=== PATIENT | female | born 1985 | race Caucasian/White ===

== ENCOUNTER 2017-01-22 01:15 | Outpatient (CLI) | payer MEDICAID ==
[~2017-01-22] VITALS: Ht 154.9 cm; Wt 78.4 kg
[2017-01-22 01:34] VITALS: Ht 154.9 cm; Wt 78.4 kg
[2017-01-22 01:35] VITALS: BP 104/56; PULSE 80; RESP 18
[2017-01-22 02:52] LABS: ADD UMIC NO; UR ASCORBIC ACID NEGATIVE (NEGATIVE); UR BILIRUBIN (Dip) NEGATIVE (NEGATIVE); UR BLOOD (Dip) NEGATIVE (NEGATIVE); UR CLARITY SLIGHTLY CLOUDY (CLEAR); UR COLOR YELLOW (YELLOW); UR GLUCOSE (Dip) NEGATIVE (NEGATIVE); UR KETONES (Dip) 1+ mg/dL (NEGATIVE); UR LEUKOCYTE ESTERASE (Dip) NEGATIVE Leu/ul (NEGATIVE); UR MUCUS MODERATE /HPF (NONE SEEN); UR NITRITE (Dip) NEGATIVE (NEGATIVE); UR RBC 0 /HPF (0-5); UR SPECIFIC GRAVITY (Dip) 1.021 (1.003-1.030); UR SQUAMOUS EPITHELIAL CELL FEW /HPF (FEW); UR TOTAL PROTEIN (Dip) NEGATIVE (NEGATIVE); UR UROBILINOGEN (Dip) 1+ mg/dL (NEGATIVE)
--- NOTE | 2017-01-22 02:59 | RADRPT ---
PROCEDURE: Obstetrical ultrasound, limited. CLINICAL INDICATION: Pelvic pain. TECHNIQUE: Multiple sonographic images of the pelvis were obtained using transabdominal technique . Images were obtained with ching scale and color Doppler. The images were reviewed on a PACS works tation. COMPARISON: No prior studies are available for comparison. FINDINGS: There is a single living intrauterine gestation with the fetus in a breech and variable presentation . heart tones of 144 beats per minute are identified. The placenta is posterior in location, grade 0-1. There is normal amniotic fluid volume with the maximum vertical pocket measuring 8.5 cm . There is no evidence of placenta abruption. IMPRESSION: Single viable intrauterine gestation. No evidence of placental abruption. .Danial Worthington MD, Date Time Electronically viewed and signed by .Danial Worthington MD, MD on 01/22/2017 02:59 .T/
--- NOTE | 2017-01-22 03:12 | PN ---
Triage Information Date/Time Jan 22, 2017 Reason for visit: Abd/pelvic pain Weeks of Gestation 25w 1d /Para 5/3/1 Diabetes: none Hypertention: none Additional information Pt was at a [employer] and was walking an tripped and fell on 2 small steps. She has 2 very sore and scraped knees and her right arm and shoulder are very sore. She says her belly hurt at first but doesn't hurt at all anymore. The edge of the stair touched the belly but did not hit the area hard. No bleeding or leaking. Pt feels movement. PMHx: none. PSHx: C/S x 3. NKDA. Objective Vital Signs Date Time Temp Pulse Resp B/P Pulse Ox O2 Delivery O2 Flow Rate FiO2 01/22/17 01:35 98.1 80 18 104/56 Room Air Heart Rate: 140's Contractions: None Exam Deferred. Results/Medications Results 24 hrs Laboratory Tests Test 01/22/17 01:15 Urine Color YELLOW Urine Clarity SLIGHTLY CLOUDY A Urine pH 5.0 Urine Specific [place]tt 1.021 Urine Ketones 1+ H Urine Nitrite NEGATIVE Urine Bilirubin NEGATIVE Urine Urobilinogen 1+ H Urine Leukocyte Esterase NEGATIVE Urine Microscopic RBC 0 Urine Microscopic WBC 1 Urine Squamous Epithelial Cells FEW Urine Calcium Oxalate Crystals MANY A Urine Mucus MODERATE Urine Hemoglobin NEGATIVE Urine Glucose NEGATIVE Urine Total Protein NEGATIVE Imaging Results BPP and placenta check on US pending. Disposition: Discharge Assessment/Plan A: IUP at 25w 1d. S/P fall. Abdominal pain. False labor. P: As long as the US and labwork is negative the pt will be d/c'ed home as this pt did not take a blow to the belly, rather the belly apparently touched the steps only. OSWALDO ROACH MD Jan 22, 2017 03:12
== END 2017-01-22 03:28 | disposition home or self-care (01) ==
LOC: OBT 01:15 → L-D 01:26 → OBT 03:28
PROVIDERS: ATTEND Obstetrics & Gynecology
DX: O26.892 Other specified pregnancy related conditions, second trimester (principal); Z3A.25 25 weeks gestation of pregnancy; Z91.81 History of falling
CPT/HCPCS: 76815; 81001; 81003; G0463

== ENCOUNTER → 2017-01-22 | Outpatient (CLI) | payer MEDICAID ==
[~2017-01-22] MED LIST: DENIES; FER325 PO; PNV1TABL4 PO
--- NOTE | 2017-01-22 05:30 | TRIAGE ---
OB Triage Datetime Report Generated by CPN: 01/22/2017 05:30 Datetime: 01/22/2017 03:35 Stage of : OB Triage Labor Evaluation Frequency: OCCASS Monitor Mode: External Duration (sec)2399: 30-40 Quality: Mild Pattern: Normal: <= 5 Contractions in 10 Minutes Resting Tone Orick: Relaxed Heart Rate FHR Baseline Rate: 140 Monitor Mode: External US Variability: Moderate 6-25 bpm Accelerations: 15X15 Decelerations: None Category: Category I Pain Assessment Pain Scale: 5 Pain Presence: Constant Pain Type: Ache Pain Location: Back; Right Leg; Right Arm Pain Goal: 3 Pain Relief Measures: Comfort Measures Datetime: 01/22/2017 03:00 Stage of : OB Triage Labor Evaluation Frequency: OCCASS Monitor Mode: External Duration (sec)2399: 30-40 Quality: Mild Pattern: Normal: <= 5 Contractions in 10 Minutes Resting Tone Orick: Relaxed Heart Rate FHR Baseline Rate: 140 Monitor Mode: External US Variability: Moderate 6-25 bpm Accelerations: 10X10 Decelerations: None Category: Category I Pain Assessment Pain Scale: 8 Pain Presence: Constant Pain Type: Ache Pain Location: Back; Right Leg; Right Arm Pain Goal: 3 Pain Relief Measures: Comfort Measures Datetime: 01/22/2017 02:00 Stage of : OB Triage Temperature Route: Oral Labor Evaluation Frequency: IRRITABILITY Monitor Mode: External Duration (sec)2399: 30-40 Quality: Mild Pattern: Normal: <= 5 Contractions in 10 Minutes Heart Rate FHR Baseline Rate: 140 Monitor Mode: External US Variability: Moderate 6-25 bpm Accelerations: 10X10 Decelerations: None Category: Category I Pain Assessment Pain Scale: 8 Pain Presence: Constant Pain Type: Ache Pain Location: Back; Right Leg; Right Arm Pain Goal: 3 Pain Relief Measures: Comfort Measures Datetime: 01/22/2017 01:44 EGA: 25.1 Time Provider Notified: 01/22/2017 00:30 Datetime: 01/22/2017 01:41 Time of Arrival: 01/22/2017 01:07 Arrived By: Wheelchair Arrived From: Home Chief Complaint: PT. FELL ON HER RT. SIDE AROUND MIDNIGHT, ABD AND BACK PAIN, RT ARM PAIN Movement: Present Contractions: Irregular Rupture of Membranes: Denies Vaginal Bleeding: None Vaginal Discharge: Denies Recent Sexual Intercouse: Denies Abdominal Trauma: Fall Patient Complaints: None Additional Patient Complaints: WAS AT HER MOTHER'S [employer] Time Provider Notified: 01/22/2017 01:57 Provider Notified: MARLEY Initial Plan: EFM, ASSESSMENT, CALL MD FOR ORDERS, UA, U/S FOR BPP WITH PLACENTA Datetime: 01/22/2017 01:40 Assessment Type: Triage Maternal Assessment Level of Consciousness: Fully Conscious DTR's/Clonus: DTRs 2+; No Clonus Headache: Denies Blurred Vision: No Respiratory Effort: Unlabored; Regular Rhythm; Equal Expansion Nausea/Vomiting: Denies RUQ Epigastric Pain: Denies Lower Extremities Edema: None Upper Extremities Edema: None Facial Edema: None Fall Risk Assessment History of Falling: (0) No (Annotations: THIS VISIT FELL, BRUISED BOTH KNEES, RT KNEE WITH BAND AI D, STATED RT. ARM HURTS, NO BRUISING, ALSO NO BRUISE OR RADHA ON ABDOMEN) Secondary Diagnosis: (0) No Ambulatory Aid: (0) Bedrest/Nurse Assist IV Therapy: (0) No Gait: (0) Normal/Bedrest/Immobile Mental Status: (0) Oriented to Own Ability Fall Score: 0 Fall Risk Score Definition: No Risk: No action required
== END | disposition home or self-care (01) ==
LOC: OBT 05:08
PROVIDERS: ATTEND Obstetrics & Gynecology
DX: O26.892 Other specified pregnancy related conditions, second trimester (principal); Z3A.25 25 weeks gestation of pregnancy; M54.9 Dorsalgia, unspecified; R10.9 Unspecified abdominal pain

== ENCOUNTER 2017-04-17 15:16 | Inpatient (IN) | payer MEDICAID ==
[~2017-04-17] VITALS: Ht 154.9 cm; Wt 86.8 kg
[~2017-04-17 15:16] MED LIST changes: -DENIES
[2017-04-17 15:30] VITALS: BP 109/65; PULSE 74; Ht 154.9 cm; Wt 86.8 kg
--- NOTE | 2017-04-17 15:45 | RADRPT ---
PROCEDURE: US OB biophysical profile. CLINICAL INDICATION: Liver TECHNIQUE: Multiple sonographic images of the pelvis were obtained. The images were reviewed on a PACS workstation. COMPARISON: US PELVIS 01/22/2017 FINDINGS: There is a single live intrauterine , in cephalic presentation. A normal heart rate i s identified measuring 139 beats per minute. The amniotic fluid index is within normal limits measur ing 19.4 cm. The placenta is grade II located posteriorly Biophysical profile: movement 2/2 tone 2/2. breathing 2/2 BRITTANY 2/2 Total 12/06 IMPRESSION: 1. Biophysical profile score of 12/06. 2. Single live intrauterine in cephalic presentation with normal heart rate of 139 b pm. 3. Normal amniotic fluid index of 19.4 cm. RPTAT: AAPP Physician Sanjeev Date Time Electronically viewed and signed by Physician Sanjeev on 04/17/2017 15:45 DELMAR/
[2017-04-17] MEDS: LACTATED RINGER'S 1,000 ML IV SCH ×2 (17:20→21:33)
[2017-04-17] MEDS ORDERED: CARBOPROST 250 MCG INJ IM PRN (21:00)
[2017-04-17] MEDS ORDERED: OXYTOCIN 30 UNITS/LR 500 ML IV SCH (21:00)
[2017-04-17] MEDS ORDERED: METHYLERGONOVINE 0.2 MG INJ IM PRN (21:00)
[2017-04-17] MEDS ORDERED: OXYTOCIN 30 UNITS/LR 500 ML IV PRN (21:00)
[2017-04-17] MEDS ORDERED: CEFAZOLIN 2 GM/50 ML (PMX) 50 ML IV SCH (21:00)
[2017-04-17] MEDS ORDERED: MISOPROSTOL 200 MCG TAB PR PRN (21:00)
[2017-04-17 21:08] LABS: BASOPHILS % 0.3 % (0.0-2.0); EOSINOPHILS # 0.1 10^3/ul (0.0-0.5); EOSINOPHILS % 1.1 % (0.0-7.0); HEMATOCRIT 38.9 % (37.0-47.0); HEMOGLOBIN 13.2 g/dl (12.0-16.0); LYMPHOCYTES # 2.3 10^3/ul (0.8-2.9); LYMPHOCYTES % 28.6 % (15.0-51.0); MEAN CORPUSCULAR HEMOGLOBIN 32.8 pg (29.0-33.0); MEAN CORPUSCULAR HGB CONC 33.9 g/dl (32.0-37.0); MEAN CORPUSCULAR VOLUME 96.8 fl (82.0-101.0); MEAN PLATELET VOLUME 10.8 fl (7.4-10.4); MONOCYTE # 0.5 10^3/ul (0.3-0.9); MONOCYTES % 6.4 % (0.0-11.0); NEUTROPHILS % 63.1 % (39.0-77.0); PLATELET COUNT 271 10^3/UL (140-415); RED BLOOD COUNT 4.02 10^6/ul (4.20-5.40); RED CELL DISTRIBUTION WIDTH 14.2 % (11.5-14.5)
[2017-04-17 21:13] LABS: INR 0.87; PROTIME 11.9 Sec (11.9-14.9); PT RATIO 0.9
[2017-04-17 21:14] LABS: PARTIAL THROMBOPLASTIN TIME 29.3 Sec (25.0-35.0)
[2017-04-17] MEDS ORDERED: CITRIC ACID/SODIUM CITRATE 15 ML CUP ONE (21:25)
[2017-04-17] MEDS ORDERED: FAMOTIDINE 20 MG INJ ONE (21:26)
[2017-04-17] MEDS ORDERED: METOCLOPRAMIDE 10 MG INJ ONE (21:26)
--- NOTE | 2017-04-17 21:26 | HP ---
Date/Time of Note Date/Time of Note DATE: 04/17/17 TIME: 21:25 OB - History Hx of Present Chief Complaint: repeat c/s in labor : 5 Para: 3 Care: Good Care Ultrasounds: Normal mid trimester US Obstetrical Complications: None Medical Complications: None Past Family/Social History * Past Medical, Surgical, Family and Obstetric Histories reviewed from chart. OB Admission Exam Vital Signs Vital Signs Vital Signs Date Time Temp Pulse Resp B/P Pulse Ox O2 Delivery O2 Flow Rate FiO2 04/17/17 15:30 97.8 74 109/65 Physical Exam HEENT: WNL Heart: Rhythm Normal Lungs: Clear, Equal Abdomen: WNL Extremities: Normal Reflexes: Normal Cervical Dilatation: Fingertip Effacement: 25% Station: -3 Membranes: Intact Heart Rate: 120's Accelerations: Accelerations Present Decelerations: No Decelerations Varibility: Moderate Contractions on Admission: < 5 Minutes Apart Intensity: Moderate Last 72 hours Lab Results CBC & BMP 04/17/17 17:20 OB Assessment/Plan Reason for admission: section (in labor) Plan: Section DOUG BROWN MD Apr 17, 2017 21:26
[2017-04-17] MEDS ORDERED: CITRIC ACID/NA CITRATE 30 ML CUP ONE (21:33)
[2017-04-17] MEDS ORDERED: LACTATED RINGER'S 1,000 ML IV ONE (21:40)
[2017-04-17] MEDS ORDERED: morphine SULFATE/PF (10 MG/10 ML) INJ ONE (21:45)
[2017-04-17] MEDS ORDERED: FENTAnyl 50 MCG/ML VIAL ONE (21:45)
[2017-04-17] MEDS ORDERED: FAMOTIDINE 20 MG INJ IV ONE (22:00)
[2017-04-17] MEDS ORDERED: CITRIC ACID/SODIUM CITRATE 15 ML CUP PO ONE (22:00)
[2017-04-17] MEDS ORDERED: METOCLOPRAMIDE 10 MG INJ IV ONE (22:00)
--- NOTE | 2017-04-17 22:12 | TRIAGE ---
OB Triage Datetime Report Generated by CPN: 04/17/2017 22:11 Datetime: 04/17/2017 20:43 Time of Arrival: 04/17/2017 20:43 EGA: 37.2 Arrived By: Ambulatory Arrived From: TRIAGE Datetime: 04/17/2017 20:00 Labor Evaluation Frequency: IRREGULAR Duration (sec)2399: 40-120 Heart Rate FHR Baseline Rate: 135 Monitor Mode: External US FHR Baseline Changes: No Baseline Change Variability: Moderate 6-25 bpm Accelerations: 15X15 Decelerations: None Category: Category I Datetime: 04/17/2017 19:43 Vaginal Exam Dilatation (cms): 0.0 Effacement (%): 0 Station: -3 Exam By: Tee TADEO RN Vaginal Bleeding: None Cervix, Consistency: Firm Cervix, Position: Posterior Datetime: 04/17/2017 19:29 Assessment Type: Triage Maternal Assessment Level of Consciousness: Fully Conscious DTR's/Clonus: DTRs 2+; No Clonus Headache: Denies Blurred Vision: No Respiratory Effort: Unlabored; Regular Rhythm; Equal Expansion Breath Sounds, Left: Clear and Equal Breath Sounds, Right: Clear and Equal Nausea/Vomiting: Denies RUQ Epigastric Pain: Denies Lower Extremities Edema: None Degree: None Upper Extremities Edema: None Degree: None Facial Edema: None Fall Risk Assessment History of Falling: (0) No Secondary Diagnosis: (0) No Ambulatory Aid: (0) Bedrest/Nurse Assist IV Therapy: (0) No Gait: (0) Normal/Bedrest/Immobile Mental Status: (0) Oriented to Own Ability Fall Score: 0 Fall Risk Score Definition: No Risk: No action required Pain Assessment Pain Scale: 9 Pain Presence: Intermittent Pain Location: Abdomen; Back Datetime: 04/17/2017 17:41 Monitor Mode: External Resting Tone Potlatch: Relaxed Contraction Comments: DIFFICULT TO DETERMINE, TOCO ADJ Heart Rate FHR Baseline Rate: 135 Monitor Mode: External US Variability: Moderate 6-25 bpm Accelerations: 10X10 Decelerations: None Category: Category I Pain Assessment Pain Scale: 5 Pain Presence: Intermittent Pain Type: Cramping Pain Location: Abdomen Pain Goal: 3 Pain Relief Measures: Comfort Measures Datetime: 04/17/2017 16:39 Labor Evaluation Frequency: 6-7 Monitor Mode: External Duration (sec)2399: 60-70 Pattern: Normal: <= 5 Contractions in 10 Minutes Resting Tone Potlatch: Relaxed Heart Rate FHR Baseline Rate: 135 Monitor Mode: External US Variability: Moderate 6-25 bpm Accelerations: 10X10 Decelerations: None Category: Category I Pain Assessment Pain Scale: 3 Pain Presence: Intermittent Pain Type: Cramping Pain Location: Abdomen Pain Goal: 3 Pain Relief Measures: Comfort Measures Datetime: 04/17/2017 16:10 Stage of : OB Triage Datetime: 04/17/2017 16:06 Vaginal Exam Dilatation (cms): 0.0 Exam By: S MARELY Vaginal Bleeding: None Cervix, Consistency: Soft Cervix, Position: Posterior Presentation 'A': Cephalic Datetime: 04/17/2017 15:34 Stage of : OB Triage Assessment Type: Triage Maternal Assessment Level of Consciousness: Fully Conscious DTR's/Clonus: DTRs 2+; No Clonus Headache: Denies Blurred Vision: No Respiratory Effort: Unlabored; Regular Rhythm; Equal Expansion Breath Sounds, Left: Clear and Equal Breath Sounds, Right: Clear and Equal Nausea/Vomiting: Denies RUQ Epigastric Pain: Denies Facial Edema: None Temperature Route: Axillary Fall Risk Assessment History of Falling: (0) No Secondary Diagnosis: (0) No Ambulatory Aid: (0) Bedrest/Nurse Assist IV Therapy: (0) No Gait: (0) Normal/Bedrest/Immobile Mental Status: (0) Oriented to Own Ability Fall Score: 0 Fall Risk Score Definition: No Risk: No action required Labor Evaluation Frequency: 3-4 Monitor Mode: External Duration (sec)2399: 40-50 Quality: Mild Pattern: Normal: <= 5 Contractions in 10 Minutes Resting Tone Potlatch: Relaxed Heart Rate FHR Baseline Rate: 135 Monitor Mode: External US Variability: Moderate 6-25 bpm Accelerations: 10X10 Decelerations: None Category: Category I Pain Assessment Pain Scale: 3 Pain Presence: Intermittent Pain Type: Cramping; Contraction Pain Location: Abdomen Pain Goal: 3 Pain Relief Measures: Comfort Measures Datetime: 04/17/2017 15:33 Time of Arrival: 04/17/2017 15:07 EGA: 37.2 Arrived By: Ambulatory Arrived From: Dr. Brenner Chief Complaint: SENT FROM OFFICE TO R/O LABOR, STATES UC'S Q 15 MIN, DENIES BLEEDING OR LEAKING O F FLUID Movement: Present Contractions: Regular Contractions: 15 Rupture of Membranes: Denies Vaginal Bleeding: None Vaginal Discharge: Denies Recent Sexual Intercouse: Denies Abdominal Trauma: Not Applicable Patient Complaints: Contractions; Cramping Time Provider Notified: 04/17/2017 16:10 Provider Notified: KEVIN Initial Plan: MONITOR, BPP Datetime: 01/22/2017 01:44 EGA: 25.1 Datetime: 01/22/2017 01:40 Fall Score: 0 Fall Risk Score Definition: No Risk: No action required
[2017-04-17] MEDS ORDERED: ONDANSETRON 4 MG INJ ONE (22:13)
[2017-04-17] MEDS ORDERED: PHENYLephrine (100 MCG/ML) 5ML SYG ONE (22:20)
[2017-04-17] MEDS ORDERED: OXYTOCIN 30 UNITS/LR 500 ML IV ONE (22:25)
[2017-04-17] MEDS ORDERED: HYDROmorphONE (0.2 MG/ML) 10ML SYG IV PRN (22:30)
[2017-04-17] MEDS ORDERED: MEPERIDINE 25 MG INJ IV PRN (22:30)
[2017-04-17] MEDS ORDERED: FENTAnyl 50 MCG/ML VIAL IV PRN (22:30)
[2017-04-17] MEDS ORDERED: DIPHENHYDRAMINE 50 MG INJ IV PRN ×2 (22:30→23:00)
[2017-04-17] MEDS ORDERED: PROCHLORPERAZINE 10 MG INJ IV PRN (22:30)
[2017-04-17] MEDS ORDERED: KETOROLAC 30 MG INJ IV PRN (22:30)
[2017-04-17] MEDS ORDERED: ONDANSETRON 4 MG INJ IV PRN ×2 (22:30→23:00)
--- NOTE | 2017-04-17 22:36 | OPR ---
Operative Report Planned Procedure Procedure date Apr 17, 2017 Procedure(s) REPEAT C/S Performed by see signature line Manager Image DR PASTOR Pre-procedure diagnosis REPEAT C/S IN LABOR Anesthesia Type: spinal Post-Procedure Post-procedure diagnosis SAME Findings Live Baby [], Apgars [] and [], weight [], position [], [] presentation []cord. Estimated Blood Loss: 600 - 700 mls Specimen(s) none Grafts/Implant(s) none Complication(s) none Pt Condition post procedure: stable Procedure Description Under satisfactory SPINAL anesthesia, the patient was prepped and draped and placed in a supine position, tilted to the left. Pfannenstiel incision was made , carried through the subcutaneous tissue. Bleeders brought under control with electrocautery. Fascia incised to the length of the incision. Rectus muscles from the fascia, divided midline. Peritoneum exposed, entered through a transverse incision. Exploration of abdomen revealed gravid uterus. Bladder flap was developed. Transverse incision was made in the lower segment of the uterus. Amniotic sac ruptured. [CLEAR ] amniotic fluid noted. [] Nasal oropharyngeal suction was performed. The baby was handed to the team for immediate attention. The placenta was delivered manually intact. Uterine cavity was cleaned with wet sponge and drainage established. Uterus closed in 2 layers using [ONE MONOCRYL] in continuous fashion. Peritoneal cavity irrigated with warm saline. Sponge, needle and instrument count reported to be correct. Abdominal peritoneum closed with [] continuously. Rectus muscle approximated with []. Fascia closed with [ONE MONOCRYL], and skin closed with tamir. Estimated blood loss [600]mL. DOUG BROWN MD Apr 17, 2017 22:36
[2017-04-17] MEDS ORDERED: HYDROmorphONE 0.5 MG/0.5 ML SYG IV PRN ×2 (23:00)
[2017-04-17] MEDS ORDERED: NALOXONE (0.4 MG/ML) INJ IV PRN (23:00)
[2017-04-17] MEDS ORDERED: ZOLPIDEM 5 MG TAB PO PRN (23:00)
[2017-04-18] VITALS (7 sets, daily range): BP systolic 98–117; BP diastolic 52–61; PULSE 71–88; RESP 16–20
[2017-04-18] MEDS ORDERED: OXYTOCIN 30 UNITS/LR 500 ML IV SCH (01:26)
[2017-04-18] MEDS: LACTATED RINGER'S 1,000 ML IV SCH ×3 (01:26→18:32)
[2017-04-18] MEDS ORDERED: NACL 0.9% 3 ML SYG IV SCH (01:30)
[2017-04-18] MEDS ORDERED: MISOPROSTOL 200 MCG TAB PR PRN (01:30)
[2017-04-18] MEDS ORDERED: LANOLIN 7 GM TUBE TOP PRN (01:30)
[2017-04-18] MEDS ORDERED: CARBOPROST 250 MCG INJ IM PRN (01:30)
[2017-04-18] MEDS ORDERED: OXYTOCIN 30 UNITS/LR 500 ML IV PRN (01:30)
[2017-04-18] MEDS ORDERED: METHYLERGONOVINE 0.2 MG INJ IM PRN (01:30)
[2017-04-18] MEDS: KETOROLAC 30 MG INJ IV PRN ×2 (03:02→12:30)
--- NOTE | 2017-04-18 12:27 | QN ---
Documentation Comment DOING WELL VSS ABD SOFT OOB TODAY DOUG BROWN MD Apr 18, 2017 12:27
[2017-04-18] MEDS: IBUPROFEN 800 MG TAB PO SCH (23:06)
[2017-04-19] MEDS: LACTATED RINGER'S 1,000 ML IV SCH (01:26)
[2017-04-19 04:00] VITALS: BP_SYST 111; BP_SYST 124; BP_DIAS 57; BP_DIAS 67; PULSE 74; PULSE 78; RESP 18; RESP 20
[2017-04-19] MEDS: IBUPROFEN 800 MG TAB PO SCH ×3 (05:05→22:56)
[2017-04-19 08:35] VITALS: BP 106/60; PULSE 72; RESP 17
[2017-04-19] MEDS: HYDROCODONE/APAP (5/325) TAB PO PRN ×2 (08:56→13:12)
[2017-04-19] MEDS ORDERED: INFLUENZA VIRUS VACCINE 0.5 ML (DISPENSING) IM* ONE (09:00)
[2017-04-19 10:38] LABS: BASOPHILS % 0.4 % (0.0-2.0); EOSINOPHILS # 0.1 10^3/ul (0.0-0.5); EOSINOPHILS % 0.8 % (0.0-7.0); HEMATOCRIT 35.4 % (37.0-47.0); HEMOGLOBIN 12.1 g/dl (12.0-16.0); LYMPHOCYTES # 1.6 10^3/ul (0.8-2.9); LYMPHOCYTES % 16.9 % (15.0-51.0); MEAN CORPUSCULAR HEMOGLOBIN 32.8 pg (29.0-33.0); MEAN CORPUSCULAR HGB CONC 34.2 g/dl (32.0-37.0); MEAN CORPUSCULAR VOLUME 95.9 fl (82.0-101.0); MONOCYTE # 0.5 10^3/ul (0.3-0.9); MONOCYTES % 5.2 % (0.0-11.0); NEUTROPHIL # 7.4 10^3/ul (1.6-7.5); NEUTROPHILS % 76.3 % (39.0-77.0); PLATELET COUNT 273 10^3/UL (140-415); RED BLOOD COUNT 3.69 10^6/ul (4.20-5.40); RED CELL DISTRIBUTION WIDTH 14.6 % (11.5-14.5); WHITE BLOOD COUNT 9.7 10^3/ul (4.8-10.8)
--- NOTE | 2017-04-19 11:58 | PN ---
Date/Time of Note Date/Time of Note DATE: 04/19/17 TIME: 11:55 OB Subjective Subjective Subjective Reports and complains of cough. Had mild headache. Denies any blurred vision or epigastric pain or right upper quadrant pain. Ambulating. Tolerated regular diet. Pain well controlled with p.o. pain medication. Breast-feeding. Had no nausea and vomiting. OB Objective Objective Objective General appearance: Alert and oriented 4. Does not appear to be in any acute distress. CV: RRR Lungs: Clear to auscultation bilaterally Abdomen: Soft, appropriate tenderness in the incision. Incision: Clean dry and intact. No evidence of drainage, erythema or cellulitis Extremities: No calf tenderness, no click no edema no cords palpable, Breasts: No evidence of mastitis or engorgement no fissure Hematology - 72 Hrs Test 04/17/17 17:20 04/19/17 10:12 White Blood Count 8.010^3/ul (4.8-10.8) 9.710^3/ul (4.8-10.8) # Red Blood Count 4.0210^6/ul (4.20-5.40) L 3.6910^6/ul (4.20-5.40) L Hemoglobin 13.2g/dl (12.0-16.0) 12.1g/dl (12.0-16.0) Hematocrit 38.9% (37.0-47.0) 35.4% (37.0-47.0) L Mean Corpuscular Volume 96.8fl (82.0-101.0) 95.9fl (82.0-101.0) Mean Corpuscular Hemoglobin 32.8pg (29.0-33.0) 32.8pg (29.0-33.0) Mean Corpuscular Hemoglobin Concent 33.9g/dl (32.0-37.0) 34.2g/dl (32.0-37.0) Red Cell Distribution Width 14.2% (11.5-14.5) 14.6% (11.5-14.5) H Platelet Count 92042^3/UL (140-415) 15775^3/UL (140-415) Mean Platelet Volume 10.8fl (7.4-10.4) H 10.0fl (7.4-10.4) Neutrophils % 63.1% (39.0-77.0) 76.3% (39.0-77.0) Lymphocytes % 28.6% (15.0-51.0) 16.9% (15.0-51.0) Monocytes % 6.4% (0.0-11.0) 5.2% (0.0-11.0) Eosinophils % 1.1% (0.0-7.0) 0.8% (0.0-7.0) Basophils % 0.3% (0.0-2.0) 0.4% (0.0-2.0) Nucleated Red Blood Cells % 0.0/100WBC (0.0-0.0) 0.0/100WBC (0.0-0.0) Neutrophils # 5.010^3/ul (1.6-7.5) 7.410^3/ul (1.6-7.5) Lymphocytes # 2.310^3/ul (0.8-2.9) 1.610^3/ul (0.8-2.9) Monocytes # 0.510^3/ul (0.3-0.9) 0.510^3/ul (0.3-0.9) Eosinophils # 0.110^3/ul (0.0-0.5) 0.110^3/ul (0.0-0.5) Basophils # 0.010^3/ul (0.0-0.1) 0.010^3/ul (0.0-0.1) Nucleated Red Blood Cells # 0.010^3/ul (0.0-0.0) 0.010^3/ul (0.0-0.0) OB Assessment/Plan Other Assessment: Status post section. Repeat Postoperative day #2 Doing well Cough. Lungs clear to auscultation. Afebrile Routine postop care Cough Robitussin 3 times daily as needed KURT ULLOA MD Apr 19, 2017 11:58
[2017-04-19] MEDS: GUAIFENESIN/DM 5ML CUP PO PRN ×2 (12:21→17:48)
[2017-04-19 12:24] VITALS: BP 104/52; PULSE 84; RESP 19
[2017-04-19 16:20] VITALS: BP 111/61; PULSE 73; RESP 18
[2017-04-19] MEDS ORDERED: AL HYDROX/MG HYDROX/SIMETH 30 ML CUP PO PRN (16:30)
[2017-04-19 17:40] VITALS: BP 111/61; RESP 18
[2017-04-19] MEDS: OXYCODONE/ACETAMINOPHEN (5/325) TAB PO PRN (17:48)
[2017-04-19 20:00] VITALS: BP 123/78; PULSE 92; RESP 20
[2017-04-20] MEDS: HYDROCODONE/APAP (5/325) TAB PO PRN ×5 (00:18→20:49)
[2017-04-20] MEDS: IBUPROFEN 800 MG TAB PO SCH ×4 (06:00→21:53)
[2017-04-20 08:00] VITALS: BP 118/68; PULSE 87; RESP 20
[2017-04-20] MEDS: OXYCODONE/ACETAMINOPHEN (5/325) TAB PO PRN (08:10)
[2017-04-20] MEDS ORDERED: DIPHTH/TET/ACEL PERTUSS (ADULT) 0.5 ML VIAL IM* ONE (09:00)
[2017-04-20] MEDS ORDERED: MEASLES,MUMPS,RUBELLA VACCINE INJ SC* ONE (09:00)
[2017-04-20] MEDS: NA PHOSPHATE/BIPHOS 133 ML ENEMA PR PRN (09:05)
--- NOTE | 2017-04-20 09:56 | PN ---
Date/Time of Note Date/Time of Note DATE: 04/20/17 TIME: 09:54 OB Subjective Subjective Subjective Post C section day 3 Doing Well Afebrile Ambulatory Chest Clear Breasts are soft , Nipples are intact Abdomen is soft Fundus is firm Moderate amount of lochia Incision is clean ,No evidence of infection No calf tenderness No ankle edema Laboratory Tests Test 04/19/17 10:12 White Blood Count 9.710^3/ul Red Blood Count 3.6910^6/ul Hemoglobin 12.1g/dl Hematocrit 35.4% Mean Corpuscular Volume 95.9fl Mean Corpuscular Hemoglobin 32.8pg Mean Corpuscular Hemoglobin Concent 34.2g/dl Red Cell Distribution Width 14.6% Platelet Count 35143^3/UL Mean Platelet Volume 10.0fl Neutrophils % 76.3% Lymphocytes % 16.9% Monocytes % 5.2% Eosinophils % 0.8% Basophils % 0.4% Nucleated Red Blood Cells % 0.0/100WBC Neutrophils # 7.410^3/ul Lymphocytes # 1.610^3/ul Monocytes # 0.510^3/ul Eosinophils # 0.110^3/ul Basophils # 0.010^3/ul Nucleated Red Blood Cells # 0.010^3/ul Current Medications Medications (Trade) Dose Ordered Sig/Radha Route PRN Reason Start Time Stop Time Status Last Admin Dose Admin Lactated Ringer's 1,000 ml @ 500 mls/hr Q2H IV 04/17/17 16:30 04/18/17 01:32 DC 04/17/17 21:33 Cefazolin Sodium/ Dextrose 50 ml @ 100 mls/hr ONCE IV 04/17/17 21:00 04/18/17 01:32 DC Oxytocin/Lactated Ringer's 500 ml @ 125 mls/hr POST IV 04/17/17 21:00 04/18/17 01:32 DC 04/18/17 01:16 Oxytocin/Lactated Ringer's 500 ml @ 0 mls/hr ONCE PRN IV For Hemorrhage Management 04/17/17 21:00 04/18/17 01:32 DC Methylergonovine Maleate (Methergine) 0.2 mg ONCE PRN IM VAGINAL BLEEDING 04/17/17 21:00 04/18/17 01:32 DC Carboprost Tromethamine (Hemabate) 250 mcg ONCE PRN IM VAGINAL BLEEDING 04/17/17 21:00 04/18/17 01:32 DC Misoprostol (Cytotec) 1,000 mcg ONCE PRN MI VAGINAL BLEEDING 04/17/17 21:00 04/18/17 01:32 DC Citric Acid/ Sodium Citrate (Bicitra) 15 ml STK-MED ONCE .ROUTE 04/17/17 21:25 04/17/17 21:26 DC Famotidine (Pepcid Iv) 20 mg STK-MED ONCE .ROUTE 04/17/17 21:26 04/17/17 21:27 DC Metoclopramide HCl (Reglan) 10 mg STK-MED ONCE .ROUTE 04/17/17 21:26 04/17/17 21:27 DC Citric Acid/ Sodium Citrate 30 ml 30 ml STK-MED ONCE .ROUTE 04/17/17 21:33 04/17/17 21:34 DC Lactated Ringer's (Lr) 1,000 ml @ 1,000 mls/hr Q1H ONCE IV 04/17/17 21:40 04/17/17 22:39 DC Citric Acid/ Sodium Citrate (Bicitra) 30 ml PRE-OP ONCE PO 04/17/17 22:00 04/17/17 22:01 DC 04/17/17 21:21 Famotidine (Pepcid Iv) 20 mg pre-procedure ONCE IV 04/17/17 22:00 04/17/17 22:01 DC 04/17/17 21:21 Metoclopramide HCl (Reglan) 10 mg ONCE ONCE IV 04/17/17 22:00 04/17/17 22:01 DC 04/17/17 21:21 Fentanyl (Sublimaze) 100 mcg STK-MED ONCE .ROUTE 04/17/17 21:45 04/17/17 21:46 DC Morphine Sulfate (Duramorph) 10 mg STK-MED ONCE .ROUTE 04/17/17 21:45 04/17/17 21:46 DC Ondansetron HCl (Zofran Inj) 4 mg STK-MED ONCE .ROUTE 04/17/17 22:13 04/17/17 22:14 DC Phenylephrine HCl 500 mcg 500 mcg STK-MED ONCE .ROUTE 04/17/17 22:20 04/17/17 22:21 DC Oxytocin/Lactated Ringer's 500 ml @ ud STK-MED ONCE IV 04/17/17 22:25 04/17/17 22:26 DC Hydromorphone HCl (Dilaudid (Rec)) 0.4 mg PACU ORDER PRN IV PAIN 04/17/17 22:30 04/18/17 01:32 DC 04/18/17 00:14 Fentanyl (Sublimaze) 25 mcg PACU ORDER PRN IV PAIN 04/17/17 22:30 04/18/17 01:32 DC Ketorolac Tromethamine (Toradol) 30 mg PACU ORDER PRN IV FOR PAIN AFTER IV NARCOTIC MED 04/17/17 22:30 04/18/17 01:32 DC Ondansetron HCl (Zofran Inj) 4 mg PACU ORDER PRN IV NAUSEA AND/OR VOMITING 04/17/17 22:30 04/18/17 01:32 DC Prochlorperazine (Compazine Inj) 5 mg PACU ORDER PRN IV NAUSEA AND/OR VOMITING 04/17/17 22:30 04/18/17 01:32 DC Meperidine HCl (Demerol) 25 mg PACU ORDER PRN IV POST-OP RIGORS 04/17/17 22:30 04/18/17 01:32 DC Diphenhydramine HCl (Benadryl) 25 mg PACU ORDER PRN IV PRURITUS 04/17/17 22:30 04/18/17 01:32 DC 04/17/17 23:34 Naloxone HCl (Narcan) 0.1 mg Q2M PRN IV FOR RESP RATE 8 OR LESS 04/17/17 23:00 04/18/17 22:59 DC Ketorolac Tromethamine (Toradol) 30 mg Q6H PRN IV PAIN 04/17/17 23:00 04/18/17 22:59 DC 04/18/17 12:30 Hydromorphone HCl (Dilaudid) 0.2 mg Q3H PRN IV PAIN LEVEL 1-5 04/17/17 23:00 04/18/17 22:59 DC Hydromorphone HCl (Dilaudid) 0.4 mg Q3H PRN IV PAIN LEVEL 6-10 04/17/17 23:00 04/18/17 22:59 DC 04/18/17 17:14 Diphenhydramine HCl (Benadryl) 25 mg Q6H PRN IV ITCHING 04/17/17 23:00 04/18/17 22:59 DC 04/18/17 07:46 Ondansetron HCl (Zofran Inj) 4 mg Q6H PRN IV NAUSEA AND/OR VOMITING 04/17/17 23:00 04/18/17 22:59 DC Zolpidem Tartrate (Ambien) 5 mg HS MAY REPEAT X 1 PRN PO INSOMNIA 04/17/17 23:00 04/18/17 22:59 DC Miscellaneous Information Duramorph: 0.2 mg Spi... GIVEN XX 04/17/17 23:00 04/18/17 01:32 DC Lactated Ringer's (Lr) 1,000 ml @ 125 mls/hr Q8H IV 04/18/17 01:26 04/19/17 11:26 DC 04/18/17 18:32 IV Flush 3 ml 3 ml PER PROTOCOL IV 04/18/17 01:30 Oxytocin/Lactated Ringer's 500 ml @ 50 mls/hr Q10H IV 04/18/17 01:26 04/18/17 11:25 DC 04/18/17 05:19 Acetaminophen/ Hydrocodone Bitart ([place] (5/325)) 2 tab Q4H PRN PO PAIN LEVEL 7-10 04/18/17 01:30 04/20/17 05:16 Ibuprofen (Motrin) 800 mg Q8 PO 04/18/17 22:00 04/20/17 09:17 Simethicone (Mylicon) 160 mg Q8H PRN PO DISTENSION/GAS/BLOATING 04/18/17 01:30 04/20/17 06:42 Sodium Biphosphate/ Sodium Phosphate (Fleet Enema) 133 ml DAILY PRN MI CONSTIPATION 04/18/17 01:30 04/20/17 09:05 Lanolin (Kca-L-Bfpanh) 1 applic BEDSIDE MEDICATION PRN TOP BEDSIDE FOR ARPIT TO NIPPLES 04/18/17 01:30 04/18/17 07:45 Diphtheria/ Tetanus/Acell Pertussis (Adacel) 0.5 ml ONCE ONCE IM* 04/20/17 09:00 04/20/17 09:01 DC Measles/Mumps/ Rubella Vaccine Live 0.5 ml 0.5 ml ONCE ONCE SC* 04/20/17 09:00 04/20/17 09:01 DC Oxytocin/Lactated Ringer's 500 ml @ 0 mls/hr ONCE PRN IV For Hemorrhage Management 04/18/17 01:30 Methylergonovine Maleate (Methergine) 0.2 mg ONCE PRN IM VAGINAL BLEEDING 04/18/17 01:30 Carboprost Tromethamine (Hemabate) 250 mcg ONCE PRN IM VAGINAL BLEEDING 04/18/17 01:30 Misoprostol (Cytotec) 1,000 mcg ONCE PRN MI VAGINAL BLEEDING 04/18/17 01:30 Influenza Virus Vaccine (Fluzone) 0.5 ml ONCE ONCE IM* 04/19/17 09:00 04/19/17 09:01 DC Guaifenesin/ Dextromethorphan (Robitussin Dm Liquid Cup) 10 ml Q4H PRN PO cough 04/19/17 11:00 04/19/17 17:48 Oxycodone/ Acetaminophen (Percocet (5/ 325)) 1 tab Q4H PRN PO PAIN 04/19/17 16:30 04/20/17 08:10 Al Hydrox/Mg Hydrox/Simethicone (Mag-Al Plus) 30 ml Q8 PRN PO GASTROINTESTINAL UPSET 04/19/17 16:30 04/19/17 17:48 New born is doing well, Breast feeding Will be discharged tomorrow KATERINE BOLDEN MD Apr 20, 2017 09:56
[2017-04-20] MEDS: GUAIFENESIN/DM 5ML CUP PO PRN ×2 (14:04→21:08)
[2017-04-20 15:58] VITALS: BP 111/60; PULSE 73; RESP 18
[2017-04-20 20:00] VITALS: BP 102/69; PULSE 70; RESP 18
[2017-04-21] MEDS: HYDROCODONE/APAP (5/325) TAB PO PRN ×2 (00:24→09:59)
[2017-04-21 04:00] VITALS: BP 117/70; PULSE 79; RESP 17
[2017-04-21] MEDS: IBUPROFEN 800 MG TAB PO SCH ×2 (05:54→13:23)
[2017-04-21] MEDS: NA PHOSPHATE/BIPHOS 133 ML ENEMA PR PRN (06:16)
[2017-04-21] MEDS: GUAIFENESIN/DM 5ML CUP PO PRN (09:59)
[2017-04-21] MEDS ORDERED: DIPHTH/TET/ACEL PERTUSS (ADULT) 0.5 ML VIAL IM* ONE (10:00)
--- NOTE | 2017-04-21 10:18 | QN ---
Documentation Comment doing well passed gas and + bm vss abd soft tamir removed by me and d/c home DOUG BROWN MD Apr 21, 2017 10:18
--- NOTE | 2017-04-21 10:19 | DS ---
Date/Time of Note Date/Time of Note DATE: 04/21/17 TIME: 10:19 Discharge Summary Admission/Discharge Info Admit Date/Time Apr 17, 2017 at 20:36 Discharge Date/Time Discharge Diagnosis term Patient Condition: Stable Hospital Course unremarkable Home Meds Reported Medications Ferrous Sulfate* (Ferrous Sulfate*) 325 Mg Tabec, 325 MG PO DAILY 09/17/13 Pnv Cmb#95/Ferrous Fumarate/Fa ( MULTIVITAMINS TABLET) 1 Each Tablet, 1 EACH PO DAILY 09/17/13 Primary Care Provider Care Physician No Primary DOUG BROWN MD Apr 21, 2017 10:19
[2017-04-21 15:30] VITALS: BP 116/67; PULSE 76; RESP 18
== END 2017-04-21 16:00 | disposition home or self-care (01) | DRG 766 ==
LOC: OBT 15:16 → L-D 15:19 → OBT 20:36 → L-D 21:43 → PP1 04-18 01:42
PROVIDERS: ADMIT Obstetrics & Gynecology; ATTEND Obstetrics & Gynecology
PROC: 10D00Z1 Extraction of Products of Conception, Low, Open Approach (ICD-10-PCS; principal; 2017-04-17 21:45)
DX: O34.211 Maternal care for low transverse scar from previous cesarean delivery (principal); Z37.0 Single live birth; Z3A.37 37 weeks gestation of pregnancy
CPT/HCPCS: 76818; 85025; 85610; 85730; 86592; 86850; 86900; 86901; 86920; 87340; 90686; 90715; 94760; 99464; G0463; J0690; J1170; J1200; J1885; J2274; J2370; J2405; J2590; J2765; J3010; J7120